=== PATIENT | female | born 1950 | race Two or more races ===

== ENCOUNTER 2019-11-09 23:45 | Inpatient (IN) | payer MEDICAID ==
[~2019-11-09] VITALS: Ht 162.6 cm; Wt 71.2 kg
[~2019-11-09 23:45] MED LIST: ACET650T10 PO; AMIN30LI2 PO; AMLO10TA4 PO; ASPI-1169 PO; ATOR10TA PO; BENA20TA9 PO; CALC-1074 PO; CEFT1VIA15 IV; CLON0.1T PO; DOCU-141 PO; ERGO500040 PO; ESOM40CA PO; FERR325T23 PO; FOLI0.8T2 PO; FOLI1TAB16 PO; FURO-144 PO; GABA300C PO; INSU100V30 IJ; INSU100V7 SQ; ISOS10TA2 PO; MAGN400O6 PO; NUT.237L67 PO; POLY17PO4 PO; RISP1TAB7 PO; SERT100T PO; THIA100T13 PO
--- NOTE | 2019-11-09 23:45 | NUR ---
TO ER BED 5 BIB EMS C/O FEVER AND LOW 02 SAT 85% RA PER EMS REPORT. O2 SAT 96%4L/NC RLE REDNESS, SWELLING NOTED. PT AAOX2, CONFUSED. SKIN HOT TO TOUCH. LUNG SOUNDS CLEAR BILATERALLY ON AUSCULTATION. PLACE PT ON CARDIAC MONITORING, CONTINUOUS POX, O2 @4L/NC O2 SAT 96%. ER MD AT BEDSIDE TO EVAL PT WITH ORDERS RECEIVED. WILL CARRY OUT ORDERS.
[2019-11-10] VITALS (7 sets, daily range): BP systolic 139–150; BP diastolic 63–73
[2019-11-10] MEDS ORDERED: ACETAMINOPHEN 650 MG/SUPP.RECT RC ONE ×2 (00:08)
[2019-11-10 00:25] LABS: BASOPHILS % (AUTO) 0.2 % (0.0-2.0); EOSINOPHILS % (AUTO) 0.1 % (0.0-6.0); HEMATOCRIT 29 % (33-45); HEMOGLOBIN 9.4 g/dL (11.5-14.8); LYMPHOCYTES # (AUTO) 0.3 /CMM (0.8-4.8); LYMPHOCYTES % (AUTO) 4.2 % (20.0-44.0); MEAN CORPUSCULAR HGB CONC 33 g/dl (31.0-36.0); MEAN CORPUSCULAR VOLUME 97 fL (82-100); MONOCYTES # (AUTO) 0.3 /CMM (0.1-1.30); MONOCYTES % (AUTO) 4.9 % (2.0-12.0); NEUTROPHILS % (AUTO) 90.6 % (43.0-81.0); PLATELET COUNT (AUTO) 190 /CMM (150-450); RED BLOOD CELL COUNT(AUTO) 2.98 MIL/uL (4.0-5.2); WHITE BLOOD COUNT (AUTO) 6.6 K/uL (4.3-11.0)
--- NOTE | 2019-11-10 00:29 | NUR ---
Covid swab collected, blood draw compelted, and urine collected via straight cath per dr. messer sent to lab.
[2019-11-10 00:33] LABS: APPEARANCE,URINE Cloudy (CLEAR); BILIRUBIN,URINE Negative (NEGATIVE); BLOOD, URINE Moderate Ery/uL (NEGATIVE); COLOR,URINE Yellow (YELLOW); KETONES,URINE Negative (NEGATIVE); LEUKOCYTE ESTERASE ,URINE Small (NEGATIVE); NITRITE, URINE Negative (NEGATIVE); PH,URINE 8.5 (5.0-8.0); PROTEIN,URINE >=300 mg/dl (NEGATIVE); UGLUCOSE Negative (NEGATIVE); UROBILINOGEN,URINE 0.2 EU/dL (0.2)
[2019-11-10 00:36] LABS: CREATININE 2.5 mg/dL (0.6-1.3); POTASSIUM 3.9 mmol/L (3.5-5.1)
[2019-11-10 00:44] LABS: ALBUMIN 2.7 g/dL (3.4-5.0); BILIRUBIN,DIRECT 0.3 mg/dL (0.0-0.2); BILIRUBIN,TOTAL 0.6 mg/dL (0.2-1.0); TOTAL PROTEIN, SERUM 6.7 g/dL (6.4-8.2)
[2019-11-10 00:50] LABS: BACTERIA,URINE Many /HPF (None Seen); RBC,URINE 21-50 /HPF (0-2); SQUAMOUS EPITHELIAL CELL,UR Many /HPF (None Seen)
--- NOTE | 2019-11-10 00:50 | NUR ---
radiology at bedside for cxr
[2019-11-10] MEDS ORDERED: VANCOMYCIN 1 GM VIAL ONE (00:59)
[2019-11-10] MEDS ORDERED: VANCOMYCIN 1 GM in IV D5W 250 ML IV ONE (01:00)
[2019-11-10] MEDS ORDERED: IV NS 0.9% 500 ML BAG IV ONE (01:00)
--- NOTE | 2019-11-10 01:04 | NUR ---
ann at bedside.
[2019-11-10] MEDS ORDERED: LEVOFLOXACIN 750 MG /D5W 150ML PIGGYBACK IV ONE (01:30)
--- NOTE | 2019-11-10 01:45 | NUR ---
pt cleaned, diaper changed, rectal temp 99.7, dr. messer aware
--- NOTE | 2019-11-10 01:53 | NUR ---
Report given to LEONA Pedersen for continuity of care.
--- NOTE | 2019-11-10 01:55 | NUR ---
RECEIVED REPORT FROM BRIANNA FROM ER FOR NIELS
[2019-11-10] MEDS ORDERED: ONDANSETRON HCL/PF 4 MG/2 ML VIAL IVP PRN (02:00)
[2019-11-10] MEDS ORDERED: DEXTROSE 50%-WATER 50 ML DISP.SYRIN IV PRN (02:00)
[2019-11-10] MEDS ORDERED: ACETAMINOPHEN 650 MG/SUPP.RECT RC PRN (02:00)
[2019-11-10] MEDS ORDERED: ALBUTEROL SULFATE 8 GM HFA.AER.AD IH PRN (02:00)
[2019-11-10] MEDS ORDERED: LEVOFLOXACIN 750 MG /D5W 150ML 150 ML IV ONE (02:11)
[2019-11-10] MEDS ORDERED: AZTREONAM 1 G VIAL ONE (02:11)
--- NOTE | 2019-11-10 02:22 | NUR ---
pt transfered to room 106 via gurney per acls protocol. endorsed remaining iv ATB for admitting RN
--- NOTE | 2019-11-10 02:25 | NUR ---
RN ADMITTING NOTES: RECEIVED PATIENT FROM ER VIA [facility]; ADMITTING DIAGNOSIS OF PNEUMONIA R/O COVID19; RESULTS PENDING. PATIENT AWAKE, ALERT AND ORIENTED X2. TRINIDADIAN SPEAKING BUT ABLE TO UNDERSTAND LITTLE SWEDISH. DENIES PAIN. IN NO S/SX OF ACUTE DISTRESS AT THIS TIME. NO SOB NOTED. PATIENT'S BREATHING IS EVEN AND UNLABORED. PATIENT IS ON 4 L OF OXYGEN VIA NC; TOLERATING WELL.SATURATING 98% AT THE MOMENT. PATIENT ON TELE MONITORING READING SINUS TACHY WITH HR 100s. NOTED IV SITE ON L FA; GAUGE18,FLUSHING AND PATENT , SALINE LOCKED. NO S/S OF INFECTION OR INFILTRATION. NOTED AV FISTULA ON THE R UA. SITE CLEAN , DRY, INTACT. BRUIT AND THRILL NOTED.PATIENT ON DIAPERS. NOTED R LOWER LEG SWELLING/EDEMA AND REDNESS. PICTURE TAKEN AND PLACED IN CHART. WOUND CONSULT REQUESTED. PATIENT KEPT CLEAN , DRY AND COMFORTABLE.SAFETY MEASURES HAVE BEEN PROVIDED AND IMPLEMENTED. PATIENT BED ALARM IS ON. HEAD OF BED ELEVATED. BED IS LOCKED, IN LOWEST POSITION AND SIDE RAILS UP. CALL LIGHT WITHIN REACH OF THE PATIENT. ISOLATION PRECAUTIONS IN PLACE. WILL CONTINUE TO MONITOR AND REASSESS FOR ANY CHANGES. WILL ATTEND TO ALL MD ADMITTING ORDERS. RECEIVED IV ABX FROM ER-RN WILL ADMINISTER PER MD ORDER.
[2019-11-10 02:46] LABS: C-REACTIVE PROTEIN 20.7 mg/dL (0.0-0.9)
[2019-11-10] MEDS: AZTREONAM 1 G in IV NS 0.9% 100 ML IV ONE ×2 (04:20→04:21)
--- NOTE | 2019-11-10 06:46 | NUR ---
PRODUCT MARKETING EXECUTIVE - CLOSING NOTES PATIENT IN BED RESTING COMFORTABLY. PATIENT IN NO ACUTE DISTRESS. NO SOB NOTED, PT BREATHING IS EVEN AND UNLABORED. PT BREATHING ON OXYGEN 4 L VIA NC. PATIENT ON CARDIAC MONITORING READING SINUS RHYTHM HR 90s. PATIENT STATES NO PAIN AT THIS TIME. PATIENT IS CLEAN , DRY AND COMFORTABLE THROUGHOUT THE SHIFT. ALL MD ADMITTING ORDERS ATTENDED. NEEDS AND CONCERNS ADDRESSED. SAFETY MEASURES IN PLACED. PATIENT BED IS LOCKED AND IN LOWEST POSITION. SIDE RAILS UP. CALL LIGHT WITHIN REACH OF THE PATIENT. ISOLATION PRECAUTION MAINTAINED . WILL ENDORSE TO AM SHIFT FOR NIELS.
--- NOTE | 2019-11-10 07:15 | NUR ---
RN NOTES RECEIVED PT ON BED, A/Ox1, CITIZEN OF [place] SPEAKING, ON 4L O2 N/C , NO SOB NOTED, ON TELE SR HR IN 80'S , PATIENT RESTING COMFORTABLY. PATIENT IN NO ACUTE DISTRESS. L FA IV SITE G 20 SITE CLEAN, DRY AND INTACT. NEEDS AND CONCERNS ADDRESSED. SAFETY MEASURES IN PLACED. PATIENT BED IS LOCKED AND IN LOWEST POSITION. SIDE RAILS UP x3. CALL LIGHT WITHIN EASY REACH OF THE PATIENT. ISOLATION PRECAUTION MAINTAINED . WILL CONTINUE TO MONITOR .
[2019-11-10] MEDS ORDERED: FEE PK DOSING 1 MIN EA MC ONE (07:56)
[2019-11-10] MEDS ORDERED: VANCOMYCIN 500 MG in IV D5W 100 ML IV PRN (08:30)
[2019-11-10] MEDS ORDERED: CHLO473M3 MM (08:50)
[2019-11-10] MEDS: BLOOD SUGAR DIAGNOSTIC 1 EACH STRIP IN SCH ×4 (09:40→21:26)
--- NOTE | 2019-11-10 09:59 | NUR ---
covid result still pending.
--- NOTE | 2019-11-10 13:00 | NUR ---
RN NOTES DR KYLE NOTIFIED REGARDING MED RECON .
--- NOTE | 2019-11-10 13:40 | NUR ---
RN NOTES CALL RECEIVED FROM MICROBIOLOGY , PT IS HAS GRAM NEGATIVE RODS IN BLOOD CULTURE, DR SAROJ CAMPBELL .
[2019-11-10] MEDS: INSULIN REGULAR, HUMAN 100 UNIT/ML 3 ML VIAL SQ PRN ×2 (17:24→21:28)
--- NOTE | 2019-11-10 17:37 | NUR ---
COVID RESULT FF. UP STILL PENDING.
--- NOTE | 2019-11-10 18:00 | NUR ---
RN NOTES PT REMANS STABLE , NO SIGNIFICANT CHANGES NOTED ON THIS SHIFT, WILL ENDORSE TO RENTAL CLERK TOOL AND EQUIPMENT NURSE FOR CONTINUITY OF CARE
--- NOTE | 2019-11-10 19:30 | NUR ---
VETERINARY ASSISTANT TECHNICIAN NOTES PT ON BED AWAKE A/O X2 VERBAL TALKING NON SENSE, NO SIGN AND SYMPTOMS OF RESPIRATORY DISTRESS, SPO2 97% ON 4L O2 VIA NC TOLERATING WELL. ON TELE MONITOR CURRENT READING SINUS RHYTHMS 80'S, DROPLET ISOLATION MAINTAINED FOR R/O COVID 19 PENDING RESULTS,SAFETY MEASURE MAINTAINED ON LOWEST POSITION AND LOCKED WITH LFA G#20 PATENT AND FLUSHED, WITH R ARM AV FISTULA, WILL CONT TO MONITOR
[2019-11-11] VITALS (8 sets, daily range): BP systolic 112–146; BP diastolic 55–67
--- NOTE | 2019-11-11 06:54 | NUR ---
RN CLOSING NOTES PT SLEEPING ON BED NO SIGN AND SYMPTOMS OF RESPIRATORY DISTRESS SPO2 >95% NO SIGNIFICANT CHANGES ON CONDITION NOTED, CELLULITIS ON BLE STILL NOTED DROPLET ISOLATION MAINTAINED FOR R/O COVID PENDING RESULT , ON TELE MONITOR WITH CURRENT READING SINUS RHYTHM 80'S, ALL NEEDS ATTENDED SAFETY MEASURE MAINTAINED WILL ENDORSED TO AM SHIFT RN
[2019-11-11 07:45] LABS: BASOPHILS % (AUTO) 0.2 % (0.0-2.0); EOSINOPHILS % (AUTO) 0.8 % (0.0-6.0); HEMATOCRIT 31 % (33-45); HEMOGLOBIN 10.1 g/dL (11.5-14.8); LYMPHOCYTES # (AUTO) 0.5 /CMM (0.8-4.8); LYMPHOCYTES % (AUTO) 6.1 % (20.0-44.0); MEAN CORPUSCULAR HGB CONC 33 g/dl (31.0-36.0); MEAN CORPUSCULAR VOLUME 96 fL (82-100); MONOCYTES # (AUTO) 0.6 /CMM (0.1-1.30); MONOCYTES % (AUTO) 8.1 % (2.0-12.0); NEUTROPHILS # (AUTO) 6.2 /CMM (1.8-8.9); NEUTROPHILS % (AUTO) 84.8 % (43.0-81.0); PLATELET COUNT (AUTO) 187 /CMM (150-450); RED BLOOD CELL COUNT(AUTO) 3.25 MIL/uL (4.0-5.2); WHITE BLOOD COUNT (AUTO) 7.4 K/uL (4.3-11.0)
--- NOTE | 2019-11-11 07:50 | NUR ---
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 RESPIRATION WITH NO PRESENCE OF ACUTE RESPIRATORY DISTRESS, ON O2 AT 3LPM VIA N/C KACEY WELL, HOB ELEVATED. ABD SOFT AND NON DISTENDED WITH ACTIVE BOWEL SOUNDS, SKIN WARM TO TOUCH AND DRY. NO S/SX OF PAIN AND DISCOMFORT. IV SITE AT LEFT FA PATIENT IN FLUSHING WITH LEAKING, NO S/SX OF INFILTRATION. AV FISTULA AT RIGHT UPPER ARM WITH + BRUIT AND THRILL, HD MWF. TELE MONITOR SHOES SINUS RHYTHM 81. ON CONTACT/DROPLET ISOLATION MARTIR TO R/O COVID, PENDING RESULT, PPE UTILIZED. BED IN LOW LOCKED POSITION, SR X2 FOR SAFETY. WILL CONTINUE TO MONITOR CARE.
[2019-11-11] MEDS: BLOOD SUGAR DIAGNOSTIC 1 EACH STRIP IN SCH ×3 (07:58→17:52)
[2019-11-11 08:07] LABS: ALBUMIN 2.4 g/dL (3.4-5.0); BILIRUBIN,TOTAL 0.5 mg/dL (0.2-1.0); CALCIUM, SERUM 9.2 mg/dL (8.5-10.1); CREATININE 3.6 mg/dL (0.6-1.3); POTASSIUM 5.5 mmol/L (3.5-5.1); TOTAL PROTEIN, SERUM 6.3 g/dL (6.4-8.2)
[2019-11-11] MEDS: HEPARIN SODIUM, PORCINE 5000 UNITS/1 ML VIAL SQ SCH ×2 (11:07→21:35)
--- NOTE | 2019-11-11 11:13 | NUR ---
ASSISTANT BRANCH MANAGER NOTES BLOOD SUGAR 51, PT GIVEN CRANBERRY JUICE 2 PACKS. WILL MONITOR AFTER 30 MINUTES
--- NOTE | 2019-11-11 11:21 | NUR ---
POSTING SPECIALIST NOTES PAGED DR. KYLE FOR MEDICATION RECONCILIATION. RESPONDED TO BE DONE BY
[2019-11-11] MEDS: ACETAMINOPHEN 325 MG TABLET PO PRN (11:28)
--- NOTE | 2019-11-11 11:28 | NUR ---
CIVIL ENGINEERING SPECIALIST NOTES PT C/O COATES, WITH FACIAL GRIMACE AND MOANING. ADMINISTERED TYLENOL PO ORDERED.
--- NOTE | 2019-11-11 11:44 | NUR ---
followup covid result still pending.
--- NOTE | 2019-11-11 11:48 | NUR ---
FIELD CARE MANAGER NOTES RE-CHECK BS WITH, BED BATH PROVIDED. IV SITE ON LEFT FA LEAKING. CHANGED IV SITE TO LEFT FOREARM #24. PATENT IN FLUSHING, BACKFLOW NOTED.
--- NOTE | 2019-11-11 11:57 | NUR ---
INSURANCE CLAIMS SPECIALIST NOTES OBTAINED TELEPHONE CONSENT WITH YOLIE LANCASTER AT 1156, WITNESSED BY MARIBEL DELGADILLO FOR HEMODIALYSIS PROCEDURE WHILE IN THE HOSPITAL.
[2019-11-11] MEDS ORDERED: VANCOMYCIN 1 GM in IV D5W 250 ML IV ONE (18:00)
--- NOTE | 2019-11-11 18:01 | NUR ---
follow up covid result still pending.
--- NOTE | 2019-11-11 18:49 | NUR ---
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 PT WITH NO PRESENCE OF ACUTE RESPIRATORY DISTRESS, ON O2 AT 3LPM VIA N/C KACEY WELL, HOB ELEVATED. ABD SOFT AND NON DISTENDED WITH ACTIVE BOWEL SOUNDS, SKIN WARM TO TOUCH AND DRY. NO S/SX OF PAIN AND DISCOMFORT. IV SITE AT LEFT FA PATIENT IN FLUSHING, NO S/SX OF INFILTRATION, VANCOMYCIN RUNNING ORDERED. AV FISTULA AT RIGHT UPPER ARM WITH + BRUIT AND THRILL, HD TODAY WITH 1000 OUTPUT. TELE MONITOR SHOES SINUS TACHYCARDIA 100. ON CONTACT/DROPLET ISOLATION DUE TO R/O COVID, PPE UTILIZED. BED IN LOW LOCKED POSITION, SR X2 FOR SAFETY. ENDORSED CARE TO NEXT SHIFT.
[2019-11-11] MEDS ORDERED: LEVOFLOXACIN 750 MG /D5W 150ML PIGGYBACK IV SCH (21:00)
[2019-11-11] MEDS: CEFEPIME 1 GM in IV D5W 50 ML IV SCH (21:36)
[2019-11-12 04:19] VITALS: BP 172/68
[2019-11-12] MEDS: BLOOD SUGAR DIAGNOSTIC 1 EACH STRIP IN SCH ×5 (05:37→21:07)
[2019-11-12] MEDS: INSULIN REGULAR, HUMAN 100 UNIT/ML 3 ML VIAL SQ PRN ×2 (05:38→21:09)
--- NOTE | 2019-11-12 07:10 | NUR ---
INFORMATION TECHNOLOGY PROJECT MANAGER NOTES RECEIVED PT ON BED, A/Ox1, PT A /OX1, CONFUSED, PT HALLUCINATING AT TIMES , COOPERATIVE WITH CARE. ON TELE SR, ON 3 L O2 N/C , PT WITH NO PRESENCE OF ACUTE RESPIRATORY DISTRESS,HOB ELEVATED. ABD SOFT AND NON DISTENDED WITH ACTIVE BOWEL SOUNDS, SKIN WARM TO TOUCH AND DRY. NO S/SX OF PAIN AND DISCOMFORT. L FA IV SITE G 20 CLEAN, DRY AND INTACT, AV FISTULA AT RIGHT UPPER ARM WITH + BRUIT AND THRILL, ON CONTACT/DROPLET ISOLATION DUE TO R/O COVID, BED IN LOW LOCKED AND LOWEST POSITION, SR X3 FOR SAFETY.CALL LIGHT WITHIN EASY REACH, WILL CONTINUE TO MONITOR .
[2019-11-12 08:00] VITALS: BP 144/65
[2019-11-12] MEDS ORDERED: VANCOMYCIN 500 MG in IV D5W 100 ML IV PRN (08:30)
[2019-11-12] MEDS: HEPARIN SODIUM, PORCINE 5000 UNITS/1 ML VIAL SQ SCH ×2 (08:32→20:57)
--- NOTE | 2019-11-12 09:17 | NUR ---
WOUND CARE CONSULT: REVIEWED CHART, NURSING DOCUMENTATION AND PHOTOS. PER NURSING STAFF, SOME REDNESS NOTED TO RT LOWER LEG PRESENT ON ADMISSION. CURRENT ESTEFANÍA SCORE IS 14. RECOMMENDATIONS MADE FOR SKIN PROTECTION. DISCUSSED WITH NURSING STAFF. WILL SEE PRN. YANES IN AGREEMENT WITH PLAN OF CARE.
[2019-11-12] MEDS ORDERED: Z GUARD REMEDY 2 OZ OINT TP PRN (09:30)
[2019-11-12 12:00] VITALS: BP_SYST 117; BP_SYST 128; BP_DIAS 53; BP_DIAS 67
--- NOTE | 2019-11-12 12:00 | NUR ---
RN NOTES PT IS COVID NEGATIVE , DR KYLE NOTIFIED
--- NOTE | 2019-11-12 13:00 | NUR ---
RN NOTES ORDER RECEIVED TO TRANSFERE PT TO [address] FLOOR .
--- NOTE | 2019-11-12 15:23 | NUR ---
RN NOTES PT TRANSFERRED TO ROOM 325 IN STABLE CONDITION, REPORT GIVEN TO HAROLDO DELGADILLO FOR CONTINUITY OF CARE .
--- NOTE | 2019-11-12 15:30 | NUR ---
TELE/RN NOTES RECEIVED REPORT FROM SARAHI RN A 68 Y/O FEMALE PATIENT WITH DIAGNOSES OF PNEUMONIA, POSSIBLE COVID POA CELLULITIS RIGHT LEG, ALLERGY TO PENICILLIN FULL CODE STATUS. IV ACCESS AT LFA # 20 G AND AV FISTULA RIGHT UPPER ARM. ON OXYGEN AT 2 L VIA NASAL CANNULA. NO SOB NOTED.WILL CONTINUE TO MONITOR.
[2019-11-12 17:02] VITALS: BP 141/75
--- NOTE | 2019-11-12 17:14 | NUR ---
INITIAL ECHOCARDIOGRAM SHOWED EF 35-40%~, W/ SEVERE PUL. HTN OF 58mmHg, LARGE PLEURAL EFFUSION AND MODERATE PERICARDIAL EFFUSION. RESULTS CONVEYED TO LEONA.
--- NOTE | 2019-11-12 17:55 | NUR ---
INSIDE TESTER NOTES BS 128MG/DL 0 COVERAGE
[2019-11-12] MEDS: ATORVASTATIN 10 MG TABLET PO SCH (17:57)
--- NOTE | 2019-11-12 19:10 | NUR ---
OUTREACH LIBRARIAN OPENING NOTES RECEIVED PATIENT IN BED ALERT AND ORIENTED X2 WITH EPISODES OF CONFUSION, RESPIRATIONS EVEN AND UNLABORED WITH EQUAL RISE AND FALL OF CHEST, ON TOOL GRINDER OPERATOR SURFACE ST 104, NO S/S OF PAIN OR DISCOMFORT AT THIS TIME, HOB ELEVATED FOR ASPIRATION PRECAUTIONS, LEFT FA IV SITE INTACT AND PATENT, NO INFILTRATION NOTED. ORIENTED TO STAFF AND CALL LIGHT AND KEPT WITHIN REACH, FALL PRECAUTIONS RENDERED, BED ALARM IN PLACE. ALL NEEDS ATTENDED AT THIS TIME, WILL CONTINUE TO MONITOR.
--- NOTE | 2019-11-12 19:18 | NUR ---
TELE/RN CLOSING NOTES PATIENT IS ON BED. ALERT AND ORIENTED X2 AND CONFUSED. PATIENT IN NO APPARENT RESPIRATORY DISTRESS NOTED. DENIES PAIN AT THIS TIME. IV ACCESS AT LEFT FOREARM # 20 G AND AV FISTULA AT RIGHT UPPER ARM PATENT AND INTACT. ALL DUE MEDS WAS GIVEN. CHECKED PATIENT EVERY 2 HOURS. BED IN LOWEST POSITION. SIDE RAILS UP X2. CALL LIGHT WITHIN REACH. WILL ENDORSED TO AIRPORT OPERATIONS COORDINATOR FOR NIELS.
[2019-11-12] MEDS ORDERED: ALBUTEROL FS 2.5 MG/0.5 ML VIAL.NEB NEB PRN (19:30)
[2019-11-12 20:00] VITALS: BP 147/67
[2019-11-12 20:21] VITALS: BP 147/67
[2019-11-12] MEDS: CEFEPIME 1 GM in IV D5W 50 ML IV SCH (20:51)
[2019-11-12] MEDS: CLONIDINE HCL 0.1 MG TABLET PO SCH (20:56)
[2019-11-12] MEDS: GABAPENTIN 300 MG CAPSULE PO SCH (21:07)
[2019-11-12 21:38] LABS: BASOPHILS % (AUTO) 0.2 % (0.0-2.0); EOSINOPHILS % (AUTO) 0.9 % (0.0-6.0); HEMATOCRIT 30 % (33-45); HEMOGLOBIN 9.8 g/dL (11.5-14.8); LYMPHOCYTES # (AUTO) 0.3 /CMM (0.8-4.8); LYMPHOCYTES % (AUTO) 5.2 % (20.0-44.0); MEAN CORPUSCULAR HGB CONC 32 g/dl (31.0-36.0); MEAN CORPUSCULAR VOLUME 95 fL (82-100); MONOCYTES # (AUTO) 0.5 /CMM (0.1-1.30); MONOCYTES % (AUTO) 8.2 % (2.0-12.0); NEUTROPHILS # (AUTO) 5.6 /CMM (1.8-8.9); NEUTROPHILS % (AUTO) 85.5 % (43.0-81.0); PLATELET COUNT (AUTO) 171 /CMM (150-450); RED BLOOD CELL COUNT(AUTO) 3.18 MIL/uL (4.0-5.2); WHITE BLOOD COUNT (AUTO) 6.6 K/uL (4.3-11.0)
[2019-11-12 21:43] LABS: CALCIUM, SERUM 8.4 mg/dL (8.5-10.1); CREATININE 3.7 mg/dL (0.6-1.3); MAGNESIUM 1.8 mg/dL (1.8-2.4); PHOSPHORUS 3.2 mg/dL (2.5-4.9); POTASSIUM 3.9 mmol/L (3.5-5.1)
--- NOTE | 2019-11-12 22:52 | NUR ---
RN MS NOTES SPOKE TO REGARDING LAB RESULTS AND SODIUM AT 129 PT IS HD PT. NO NEW ORDERS AT THIS TIME, WILL CONTINUE TO MONITOR.
[2019-11-13] VITALS (8 sets, daily range): BP systolic 90–140; BP diastolic 51–74
--- NOTE | 2019-11-13 06:07 | NUR ---
paper pattern inspector note per lab unable to draw blood sample for lab will come back.
[2019-11-13] MEDS: INSULIN REGULAR, HUMAN 100 UNIT/ML 3 ML VIAL SQ PRN ×2 (06:08→22:23)
[2019-11-13] MEDS: BLOOD SUGAR DIAGNOSTIC 1 EACH STRIP IN SCH ×4 (06:08→22:21)
--- NOTE | 2019-11-13 06:27 | NUR ---
EXTERMINATOR HELPER TERMITE CLOSING NOTES PATIENT IN BED AWAKE ALERT AND ORIENTED X1-2 WITH EPISODES OF CONFUSION, RESPIRATIONS EVEN AND UNLABORED WITH EQUAL RISE AND FALL OF CHEST, ON HOP WEIGHER ST 101, NO S/S OF PAIN OR DISCOMFORT AT THIS TIME, HOB ELEVATED FOR ASPIRATION PRECAUTIONS, LEFT FA IV SITE INTACT AND PATENT, NO INFILTRATION NOTED. SANTI AV FISTULA BRUIT PRESENT . AM ACCUCHECK 96 NO INSULIN PER SLIDING SCALE. PT NOTED ANURIC,HD PT, BLADDER SCAN DONE NOT RETAINING NOTED ONLY 20-60CC'S, NO ABDOMEN DISTENTION, NO PAIN TO ABDOMEN AREA. CALL LIGHT AND KEPT WITHIN REACH, FALL PRECAUTIONS RENDERED, BED ALARM IN PLACE. ALL NEEDS ATTENDED AT THIS TIME, WILL CONTINUE TO MONITOR AND ENDORSE TO NEXT SHIFT.
--- NOTE | 2019-11-13 07:30 | NUR ---
REMOTE ENCODING OPERATIONS SUPERVISOR NOTES PT IN BED, AWAKE, ALERT AND VERBALLY RESPONSIVE, DENIES PAIN, NOT IN DISTRESS, ASSISTED WITH BREAKFAST, CALL LIGHT WITHIN REACH, KEPT COMFORTABLE IN BED.
[2019-11-13 08:36] LABS: BASOPHILS % (AUTO) 0.4 % (0.0-2.0); EOSINOPHILS % (AUTO) 1.6 % (0.0-6.0); HEMATOCRIT 29 % (33-45); HEMOGLOBIN 9.8 g/dL (11.5-14.8); LYMPHOCYTES # (AUTO) 0.4 /CMM (0.8-4.8); LYMPHOCYTES % (AUTO) 6.4 % (20.0-44.0); MEAN CORPUSCULAR HGB CONC 33 g/dl (31.0-36.0); MEAN CORPUSCULAR VOLUME 94 fL (82-100); MONOCYTES # (AUTO) 0.6 /CMM (0.1-1.30); MONOCYTES % (AUTO) 8.5 % (2.0-12.0); NEUTROPHILS # (AUTO) 5.7 /CMM (1.8-8.9); NEUTROPHILS % (AUTO) 83.1 % (43.0-81.0); PLATELET COUNT (AUTO) 188 /CMM (150-450); RED BLOOD CELL COUNT(AUTO) 3.12 MIL/uL (4.0-5.2); WHITE BLOOD COUNT (AUTO) 6.8 K/uL (4.3-11.0)
[2019-11-13 08:38] LABS: CALCIUM, SERUM 8.4 mg/dL (8.5-10.1); CREATININE 3.9 mg/dL (0.6-1.3); MAGNESIUM 1.9 mg/dL (1.8-2.4); PHOSPHORUS 3.4 mg/dL (2.5-4.9); POTASSIUM 4.2 mmol/L (3.5-5.1)
[2019-11-13] MEDS: CLONIDINE HCL 0.1 MG TABLET PO SCH ×2 (09:19→21:00)
[2019-11-13] MEDS: FOLIC ACID 1 MG TABLET PO SCH (09:19)
[2019-11-13] MEDS: DOCUSATE SODIUM 100 MG CAPSULE PO SCH (09:19)
[2019-11-13] MEDS: CARVEDILOL 3.125 MG TABLET PO SCH ×2 (09:20→21:00)
[2019-11-13] MEDS: HEPARIN SODIUM, PORCINE 5000 UNITS/1 ML VIAL SQ SCH ×2 (09:22→21:32)
[2019-11-13] MEDS: ATORVASTATIN 10 MG TABLET PO SCH (17:42)
--- NOTE | 2019-11-13 18:37 | NUR ---
CONTINUOUS PROCESS MACHINE OPERATOR NOTES: PATIENT IN BED SLEEPING COMFORTABLY. PATIENT SHOWS NO SIGNS OF DISTRESS. AROUSABLE. PATIENT DOES NOT COMPLAIN OF PAIN. ASSISTED WITH DINNER. PM CARE PROVIDED.
--- NOTE | 2019-11-13 19:55 | NUR ---
ROOF CEMENT AND PAINT MAKER HELPER NOTES PT IN BED, AWAKE, ALERT AND VERBALLY RESPONSIVE, DENIES PAIN, NOT IN DISTRESS, TELE MONITOR READS SINUS 90s, NO SIGNS OF ACUTE CARDIAC OR RESPIRATORY DISTRESS. SAFETY MEASURES IN PLACE, ASPIRATION PRECAUTION EMPHASIZED. ALL NEEDS ANTICIPATED. WILL CONTINUE TO MONITOR ACCORDINGLY.
[2019-11-13] MEDS: CEFTRIAXONE 1 G in IV D5W 50 ML IV SCH (20:21)
[2019-11-13] MEDS: ACETAMINOPHEN 325 MG TABLET PO PRN (21:31)
[2019-11-13] MEDS: GABAPENTIN 300 MG CAPSULE PO SCH (21:39)
[2019-11-14] VITALS: BP 130/65
[2019-11-14 04:00] VITALS: BP 152/71
--- NOTE | 2019-11-14 06:05 | NUR ---
RN NOTES ALL NEEDS ATTENDED AND MET, ABLE TO REST AND SLEPT AT INTERVALS, REPOSITIONED FOR COMFORT, SAFETY MEASURES IN PLACE, ASPIRATION PRECAUTION EMPHASIZE, CALL LIGHT WITHIN EASY REACH. WILL ENDORSE TO AM NURSE FOR CONTINUITY OF CARE.
[2019-11-14] MEDS: BLOOD SUGAR DIAGNOSTIC 1 EACH STRIP IN SCH ×4 (07:07→21:26)
--- NOTE | 2019-11-14 07:30 | NUR ---
HEEL GOUGER NOTES PT IN BED, AWAKE, ALERT AND ABLE TO ANSWER SIMPLE QUESTIONS, WITH EPISODES OF CONFUSION, NOT IN DISTRESS, CALL LIGHT WITHIN REACH.
[2019-11-14 08:00] VITALS: BP 161/70
[2019-11-14 08:06] LABS: CALCIUM, SERUM 8.6 mg/dL (8.5-10.1); CREATININE 4.5 mg/dL (0.6-1.3); PHOSPHORUS 4.4 mg/dL (2.5-4.9); POTASSIUM 4.4 mmol/L (3.5-5.1)
[2019-11-14 08:15] LABS: BASOPHILS # (AUTO) 0.1 /CMM (0.0-0.2); BASOPHILS % (AUTO) 0.6 % (0.0-2.0); EOSINOPHILS % (AUTO) 0.9 % (0.0-6.0); HEMATOCRIT 28 % (33-45); HEMOGLOBIN 9.2 g/dL (11.5-14.8); LYMPHOCYTES # (AUTO) 0.7 /CMM (0.8-4.8); LYMPHOCYTES % (AUTO) 6.7 % (20.0-44.0); MEAN CORPUSCULAR HGB CONC 33 g/dl (31.0-36.0); MEAN CORPUSCULAR VOLUME 94 fL (82-100); MONOCYTES # (AUTO) 0.7 /CMM (0.1-1.30); NEUTROPHILS # (AUTO) 8.6 /CMM (1.8-8.9); NEUTROPHILS % (AUTO) 84.8 % (43.0-81.0); PLATELET COUNT (AUTO) 188 /CMM (150-450); RED BLOOD CELL COUNT(AUTO) 2.99 MIL/uL (4.0-5.2); WHITE BLOOD COUNT (AUTO) 10.1 K/uL (4.3-11.0)
[2019-11-14] MEDS: CLONIDINE HCL 0.1 MG TABLET PO SCH ×2 (09:58→21:09)
[2019-11-14] MEDS: DOCUSATE SODIUM 100 MG CAPSULE PO SCH (09:59)
[2019-11-14] MEDS: FOLIC ACID 1 MG TABLET PO SCH (09:59)
[2019-11-14] MEDS: CARVEDILOL 3.125 MG TABLET PO SCH ×2 (09:59→21:09)
[2019-11-14] MEDS: HEPARIN SODIUM, PORCINE 5000 UNITS/1 ML VIAL SQ SCH ×2 (10:00→21:10)
[2019-11-14] MEDS: INSULIN REGULAR, HUMAN 100 UNIT/ML 3 ML VIAL SQ PRN ×2 (12:14→21:27)
--- NOTE | 2019-11-14 13:29 | NUR ---
AUTOMOBILE BUMPER STRAIGHTENER NOTES PT IN BED, AWAKE, ALERT AND VERBALLY RESPONSIVE, WITH CONFUSION, NOT IN PAIN OR DISTRESS, ASSISTED WITH MEALS, CALL LIGHT WITHIN REACH, NEEDS ATTENDED.
[2019-11-14 16:00] VITALS: BP 163/84
[2019-11-14] MEDS: ATORVASTATIN 10 MG TABLET PO SCH (18:39)
--- NOTE | 2019-11-14 18:52 | NUR ---
BELT AND LINK ASSEMBLY SUPERVISOR NOTES PT IN BED, AWAKE, ALERT, CONFUSED, NO SIGN OF PAIN OR DISTRESS, HEMODIALYSIS ONGOING, TOLERATING WELL, PM CARE PROVIDED, ALL NEEDS ATTENDED.
--- NOTE | 2019-11-14 19:20 | NUR ---
MANAGER SOCIAL WORK OPENING NOTES RECEIVED PATIENT FROM MORNING SHIFT ALERT AND ORIENTED X 2. VERBALLY RESPONSIVE DIVEHI SPEAKING. BREATHING REGULAR AND UNLABORED ON OXYGEN AT 2L/MIN VIA NASAL CANNULA. LEFT FOREARM G20 IV LINE INTACT AND PATENT, FLUSHING WELL WITH NO BLEEDING OR S/S OF INFILTRATION NOTED. ON-GOING DIALYSIS VIA RIGHT UPPER ARM AV FISTULA. ON CARDIAC MONITORING WITH NSR AT 87bpm. NO S/S OF PAIN/DISCOMFORT NOTED AT THIS TIME. BED LOW AND LOCKED ON SEMI FOWLERS POSITION. CALL LIGHT IN REACH. WILL CONTINUE TO MONITOR.
--- NOTE | 2019-11-14 19:45 | NUR ---
TRANSIT BUS DRIVER NOTES S/P HEMODIALYSIS WITH 2L OUT. POST HD BP 158/70, NO ACTIVE BLEEDING NOTED ON SANTI AV FISTULA, POSITIVE FOR BRUIT AND THRILL. WILL CONTINUE TO MONITOR.
[2019-11-14] MEDS: CEFTRIAXONE 1 G in IV D5W 50 ML IV SCH (19:53)
[2019-11-14 20:00] VITALS: BP 151/65
[2019-11-14] MEDS: GABAPENTIN 300 MG CAPSULE PO SCH (21:08)
--- NOTE | 2019-11-14 22:00 | NUR ---
FOREIGN COLLECTION CLERK NOTES BS 110mg/dl, NO INSULIN COVERAGE NEEDED. WILL CONTINUE TO MONITOR.
[2019-11-15] VITALS: BP 145/65
[2019-11-15 00:01] VITALS: BP 145/65
[2019-11-15 04:00] VITALS: BP 146/70
--- NOTE | 2019-11-15 06:20 | NUR ---
DOUGH MIXER OPERATOR CLOSING NOTES PATIENT IN BED ALERT AND ORIENTED X 2. AFEBRILE WITH NO S/S OF DISTRESS OBSERVED. LEFT FOREARM G20 IV LINE PATENT AND FLUSHING WELL. MAINTAINED ON CARDIAC MONITORING WITH NSR AT 95bpm. NO S/S OF PAIN/DISCOMFORT NOTED THE WHOLE SHIFT. RIGHT UPPER ARM AV FISTULA POSITIVE FOR BRUIT AND THRILL, NO ACTIVE BLEEDING SEEN. BED LOW AND LOCKED ON SEMI FOWLERS POSITION. CALL LIGHT IN REACH. WILL ENDORSE TO MORNING SHIFT FOR NIELS.
[2019-11-15] MEDS: BLOOD SUGAR DIAGNOSTIC 1 EACH STRIP IN SCH ×4 (06:36→22:31)
[2019-11-15] MEDS: INSULIN REGULAR, HUMAN 100 UNIT/ML 3 ML VIAL SQ PRN ×4 (06:36→22:20)
[2019-11-15 06:52] LABS: BASOPHILS % (AUTO) 0.4 % (0.0-2.0); EOSINOPHILS % (AUTO) 0.7 % (0.0-6.0); HEMATOCRIT 28 % (33-45); HEMOGLOBIN 9.1 g/dL (11.5-14.8); LYMPHOCYTES # (AUTO) 0.5 /CMM (0.8-4.8); LYMPHOCYTES % (AUTO) 4.9 % (20.0-44.0); MEAN CORPUSCULAR HGB CONC 33 g/dl (31.0-36.0); MEAN CORPUSCULAR VOLUME 93 fL (82-100); MONOCYTES # (AUTO) 0.5 /CMM (0.1-1.30); MONOCYTES % (AUTO) 4.7 % (2.0-12.0); NEUTROPHILS # (AUTO) 9.1 /CMM (1.8-8.9); NEUTROPHILS % (AUTO) 89.3 % (43.0-81.0); PLATELET COUNT (AUTO) 215 /CMM (150-450); RED BLOOD CELL COUNT(AUTO) 3.01 MIL/uL (4.0-5.2); WHITE BLOOD COUNT (AUTO) 10.2 K/uL (4.3-11.0)
[2019-11-15 07:05] LABS: CALCIUM, SERUM 8.5 mg/dL (8.5-10.1); CREATININE 3.7 mg/dL (0.6-1.3); MAGNESIUM 2.1 mg/dL (1.8-2.4); PHOSPHORUS 4.2 mg/dL (2.5-4.9); POTASSIUM 4.2 mmol/L (3.5-5.1)
--- NOTE | 2019-11-15 07:50 | NUR ---
rn notes patient received on 2L nasal cannula, no sob noted, patient shows no s/s of pain at this time. Post HD from yesterday. L FA 20 SL, with SANTI AV fistula. bed at the lowest setting, call light within reach, side rails up x2.
[2019-11-15 08:00] VITALS: BP 137/63
[2019-11-15] MEDS: FOLIC ACID 1 MG TABLET PO SCH (08:37)
[2019-11-15] MEDS: DOCUSATE SODIUM 100 MG CAPSULE PO SCH (08:37)
[2019-11-15] MEDS: CARVEDILOL 3.125 MG TABLET PO SCH ×2 (08:37→22:24)
[2019-11-15] MEDS: CLONIDINE HCL 0.1 MG TABLET PO SCH ×2 (08:37→22:24)
[2019-11-15] MEDS: HEPARIN SODIUM, PORCINE 5000 UNITS/1 ML VIAL SQ SCH ×2 (08:38→22:23)
[2019-11-15] MEDS ORDERED: CEFA1FRO IV (12:48)
[2019-11-15] MEDS ORDERED: CARV3.122 PO (12:48)
[2019-11-15] MEDS: ATORVASTATIN 10 MG TABLET PO SCH (17:46)
--- NOTE | 2019-11-15 18:53 | NUR ---
rn closing notes patient remains on 2L nasal cannula, no sob noted, patient shows no s/s of pain at this time. TELE NSR this shift, anuric, R leg cellulitis resolved. L FA 20 with SANTI AV fistula present. 2Units insulin given around 1800 with 131 b/s. bed at the lowest setting, call light within reach, side rails up x2.
--- NOTE | 2019-11-15 19:15 | NUR ---
RN PM OPENING NOTE REPORT RECIEVED FROM JAYE RN. PT ON 2LNC NO SOB; RESP EVEN AND UNLABORED. PATIENT IN NO APPARENT DISTRESS. PT AXOX2 SPANSIH SPEAKING ONLY. PT TELE DC'D PATIENT WAS TO GET DISCHARGED TODAY BUT DISCHARGE WAS DELAYED PER REPORT. PT HAS LFA 22 GUAGE AND SANTI AVFISTULA POSITIVE BRUIT AND THRILL. BED DOWN LOCKED CALL LIGHT WITHIN REACH.
[2019-11-15 20:00] VITALS: BP 129/63
[2019-11-15] MEDS: CEFTRIAXONE 1 G in IV D5W 50 ML IV SCH (20:49)
[2019-11-15] MEDS: GABAPENTIN 300 MG CAPSULE PO SCH (22:23)
[2019-11-15] MEDS: ACETAMINOPHEN 325 MG TABLET PO PRN (22:24)
[2019-11-16 00:36] VITALS: BP 125/62
[2019-11-16 04:09] VITALS: BP 126/74
--- NOTE | 2019-11-16 06:57 | NUR ---
RN PM CLOSING NOTE PT ON 2LNC NO SOB; RESP EVEN AND UNLABORED. PATIENT IN NO APPARENT DISTRESS. PT AXOX2 SPANSIH SPEAKING ONLY. PT HAS LFA 22 GUAGE PATENT INTACT FLUSHED. AND SANTI AVFISTULA POSITIVE BRUIT AND THRILL. BED DOWN LOCKED CALL LIGHT WITHIN REACH. AM BS WAS 72 PATIENT GIVEN SNACKS OF JUICE AND PUDDING TOLEARTING SNACKS WELL.
--- NOTE | 2019-11-16 07:29 | NUR ---
rn notes patient received on 2L nasal cannula, no sob noted, patient acting confused at times. Sinhala speaking only. TELE dc since last night due to pending discharge that did not happen. ANURIC at this time with R leg cellulitis resolved. renal diet with L FA 22, SANTI AV fistula present. bed at the lowest setting, call light within reach, side rails up x2.
[2019-11-16] MEDS: BLOOD SUGAR DIAGNOSTIC 1 EACH STRIP IN SCH ×4 (07:33→21:06)
--- NOTE | 2019-11-16 07:33 | NUR ---
rn notes patient's blood glucose at 110, no insulin coverage needed.
[2019-11-16 08:37] LABS: BASOPHILS % (AUTO) 0.3 % (0.0-2.0); EOSINOPHILS % (AUTO) 1.7 % (0.0-6.0); HEMATOCRIT 30 % (33-45); HEMOGLOBIN 9.6 g/dL (11.5-14.8); LYMPHOCYTES # (AUTO) 0.6 /CMM (0.8-4.8); LYMPHOCYTES % (AUTO) 7.9 % (20.0-44.0); MEAN CORPUSCULAR HGB CONC 33 g/dl (31.0-36.0); MEAN CORPUSCULAR VOLUME 93 fL (82-100); MONOCYTES # (AUTO) 0.6 /CMM (0.1-1.30); NEUTROPHILS # (AUTO) 6.8 /CMM (1.8-8.9); NEUTROPHILS % (AUTO) 83.1 % (43.0-81.0); PLATELET COUNT (AUTO) 238 /CMM (150-450); RED BLOOD CELL COUNT(AUTO) 3.16 MIL/uL (4.0-5.2); WHITE BLOOD COUNT (AUTO) 8.2 K/uL (4.3-11.0)
[2019-11-16 08:56] LABS: CALCIUM, SERUM 8.3 mg/dL (8.5-10.1); CREATININE 4.4 mg/dL (0.6-1.3); POTASSIUM 4.4 mmol/L (3.5-5.1)
[2019-11-16] MEDS: DOCUSATE SODIUM 100 MG CAPSULE PO SCH (09:18)
[2019-11-16] MEDS: CLONIDINE HCL 0.1 MG TABLET PO SCH ×2 (09:18→20:53)
[2019-11-16] MEDS: CARVEDILOL 3.125 MG TABLET PO SCH ×2 (09:19→20:53)
[2019-11-16] MEDS: FOLIC ACID 1 MG TABLET PO SCH (09:19)
[2019-11-16] MEDS: HEPARIN SODIUM, PORCINE 5000 UNITS/1 ML VIAL SQ SCH ×2 (09:20→20:59)
[2019-11-16 10:24] LABS: BAND % (MANUAL) 3 % (0.0-5.0); EOSINOPHILS % (MANUAL) 1 % (0-4); LYMPHOCYTES % (MANUAL) 11 % (16-48); METAMYELOCYTES % 1 % (0-0); MONOCYTES % (MANUAL) 9 % (0-11.0); NEUTROPHILS % (MANUAL) 75 (42-76)
--- NOTE | 2019-11-16 12:11 | NUR ---
rn notes patients b/s level of 101, no insulin coverage needed
[2019-11-16] MEDS: CEFAZOLIN 1 GM in IV D5W 50 ML IV SCH ×2 (14:53→20:59)
[2019-11-16] MEDS: INSULIN REGULAR, HUMAN 100 UNIT/ML 3 ML VIAL SQ PRN ×2 (17:55→21:06)
[2019-11-16] MEDS: ATORVASTATIN 10 MG TABLET PO SCH (17:58)
--- NOTE | 2019-11-16 18:54 | NUR ---
rn notes patient remains on 2L nasal cannula, no sob noted, patient denies pain at this time. confused. HD done today with 1.3L out. R leg cellulitis resolved. SANTI fistula present. R FA 22 present. post HD vanco given. Awaiting for [facility] approval to be transferred. bed at the lowest setting, call light within reach, side rails up x2.
[2019-11-16 20:27] VITALS: BP 140/59
[2019-11-16] MEDS: GABAPENTIN 300 MG CAPSULE PO SCH (20:53)
[2019-11-16] MEDS: ACETAMINOPHEN 325 MG TABLET PO PRN (20:54)
--- NOTE | 2019-11-17 06:30 | NUR ---
RN PM CLOSING NOTE PT ON 2LNC NO SOB NOTED PT DENIES PAIN. PATIENT IS CALLING OUT AND MOANING. PT IS CONFUSED. PT HAS SANTI FISTULA PRESENT. R WIST 22. WITH PLAN TO BE TRNASFERRED OR DISCHARGE BACK TO FACILITY. approval to be transferred. bed at the lowest setting, call light within reach, side rails up x2.
[2019-11-17] MEDS: BLOOD SUGAR DIAGNOSTIC 1 EACH STRIP IN SCH ×4 (07:32→21:21)
[2019-11-17 08:00] VITALS: BP 137/62
[2019-11-17] MEDS: DOCUSATE SODIUM 100 MG CAPSULE PO SCH (08:34)
[2019-11-17] MEDS: CEFAZOLIN 1 GM in IV D5W 50 ML IV SCH ×2 (08:34→20:06)
[2019-11-17] MEDS: FOLIC ACID 1 MG TABLET PO SCH (08:34)
[2019-11-17] MEDS: CLONIDINE HCL 0.1 MG TABLET PO SCH ×2 (08:34→20:07)
[2019-11-17] MEDS: CARVEDILOL 3.125 MG TABLET PO SCH ×2 (08:34→20:07)
[2019-11-17] MEDS: HEPARIN SODIUM, PORCINE 5000 UNITS/1 ML VIAL SQ SCH ×2 (08:35→20:55)
[2019-11-17] MEDS: INSULIN REGULAR, HUMAN 100 UNIT/ML 3 ML VIAL SQ PRN ×3 (12:18→21:32)
[2019-11-17 16:00] VITALS: BP 133/63
[2019-11-17] MEDS: ATORVASTATIN 10 MG TABLET PO SCH (17:27)
--- NOTE | 2019-11-17 19:23 | NUR ---
PT ON 2LNC TOLERATING WELL; RESP EVEN AND UNLABORED. PATIENT IN NO APPARENT DISTRESS. PT A/O X1 SPANSIH SPEAKING ONLY. PT HAS LFA 22 GUAGE PATENT INTACT FLUSHED. AND SANTI AVFISTULA INTACT. SAFETY PRECAUTIONS IN PLACE, CALL LIGHT WITHIN REACH.WILL ENDORSE TO NEXT SHIFT FOR NIELS.
--- NOTE | 2019-11-17 19:40 | NUR ---
RN OPEN NOTES PATIENT IS WATCHING TV IN BED. BED IS IN LOWEST LOCKED POSITION WITH SIDE RAILS UP X2, SEMI FOWLERS. A/O X1. ON 2L NC, NO SOB/ ACUTE RESPIRATORY DISTRESS NOTED. NO COMPLAINTS OF PAIN AT THE MOMENT. CALL LIGHT IS WITHIN REACH. WILL CONTINUE TO MONITOR.
[2019-11-17 20:00] VITALS: BP 130/63
[2019-11-17] MEDS: GABAPENTIN 300 MG CAPSULE PO SCH (21:15)
--- NOTE | 2019-11-18 03:58 | NUR ---
RN NOTES BRINGING PATIENT TO ROOM 202. GAVE REPORT TO BRADFORD DELGADILLO FOR NIELS.
--- NOTE | 2019-11-18 04:00 | NUR ---
RN NOTES Received patient transferred from [facility] to MS 202. On O2 via NC @ 2LPM, saturating well, no respiratory distress noted. A/O x1-2, no s/sx of discomfort noted. Kept on bed clean, dry and comfortable. On fall and aspiration precautions. Will continue to monitor accordingly.
[2019-11-18] MEDS: BLOOD SUGAR DIAGNOSTIC 1 EACH STRIP IN SCH ×4 (06:41→21:51)
--- NOTE | 2019-11-18 06:50 | NUR ---
RN CLOSING NOTES Patient awake at this time making moaning sounds, when asked, patient denies any discomfort. On O2 inhalation via NC, titrated to keep SpO2>92%, no SOB/respiratory distress noted. Patient denies any discomfort at this time. Afebrile the whole shift, no new unusualities. All nursing needs attended. Kept on bed clean, dry and comfortable. Endorsed.
--- NOTE | 2019-11-18 08:00 | NUR ---
MS RN OPENING NOTES Received Patient resting in bed. A/O x 1-2. VS stable with no acute distress. Breathing even and unlabored on 2LPM via NC with no respiratory distress. Denies pain. No signs and symptoms of pain. SANTI Fistula clean with bruit and thrill noted. 22g PIV on left wrist clean, intact, patent and flushing well. Safety precautions in place. Bed locked and set to lowest position with side rails x 2 up. All needs rendered at this time. Call light within reach. Will continue to monitor.
[2019-11-18 08:44] VITALS: BP 122/56
[2019-11-18] MEDS: CEFAZOLIN 1 GM in IV D5W 50 ML IV SCH ×2 (09:03→20:01)
[2019-11-18] MEDS: CLONIDINE HCL 0.1 MG TABLET PO SCH ×2 (09:04→20:02)
[2019-11-18] MEDS: DOCUSATE SODIUM 100 MG CAPSULE PO SCH ×2 (09:04→16:38)
[2019-11-18] MEDS: CARVEDILOL 3.125 MG TABLET PO SCH ×2 (09:05→20:02)
[2019-11-18] MEDS: FOLIC ACID 1 MG TABLET PO SCH (09:05)
[2019-11-18] MEDS: HEPARIN SODIUM, PORCINE 5000 UNITS/1 ML VIAL SQ SCH (09:06)
[2019-11-18] MEDS: INSULIN REGULAR, HUMAN 100 UNIT/ML 3 ML VIAL SQ PRN ×2 (12:07→21:57)
[2019-11-18 16:05] VITALS: BP 124/54
[2019-11-18] MEDS: ATORVASTATIN 10 MG TABLET PO SCH (17:09)
--- NOTE | 2019-11-18 18:27 | NUR ---
MS RN CLOSING NOTES Patient awake and resting in bed. A/O x 1-2. VS stable with no acute distress. Breathing even and unlabored on 2LPM via NC with no respiratory distress. Denies pain. No signs and symptoms of pain. SANTI Fistula clean with bruit and thrill noted. 22g PIV on left wrist clean, intact, patent and flushing well. Safety precautions in place. Bed locked and set to lowest position with side rails x 2 up. All needs rendered at this time. Call light within reach. Will endorse plan of care to oncoming shift.
--- NOTE | 2019-11-18 19:34 | NUR ---
MS/RN OPENING NOTES RECEIVED PATIENT IN BED, AWAKE AND TALKING TO SELF, PATIENT WITH COGNITIVE BEHAVIOR AND MONITORING FOR BOWEL, SIDE RAILS UP, BED ALARM ON, MONITORED FOR SAFETY. RESPIRATIONS EVEN AND UNLABORED, ON OXYGEN VIA NC AT 2LITER. WILL MONITOR,
--- NOTE | 2019-11-18 19:47 | NUR ---
MS/RN NOTES PATIENT SPEAKING IN ESTONIAN AND REPORT HAVING HEADACHE BLOOD PRESSURE CHECK AT 157/67 PULSE 95 WITH SCHEDULED BLOOD PRESSURE TO BE GIVEN.
[2019-11-18 20:00] VITALS: BP 157/67
--- NOTE | 2019-11-18 20:05 | NUR ---
RIGHT AV FISTULA NOTED AND BRUIT AND THRILL OBSERVED.
[2019-11-18 20:07] VITALS: BP 157/67
--- NOTE | 2019-11-18 20:34 | NUR ---
MS/RN NOTES PATIENT RESTING COMFORTABLY AT THIS TIME.PROVIDED FLUIDS.
[2019-11-18] MEDS: GABAPENTIN 300 MG CAPSULE PO SCH (21:51)
--- NOTE | 2019-11-18 22:08 | NUR ---
BLOOD SUGAR CHECK AT 151 AND SLIDING SCALE COVERGAE OF2 UNIT INSULIN GIVEN, SNACK OFFERED AND PROVIDED. PATIENT TOLERATED WELL. WILL MONITOR.
[2019-11-19] MEDS: BLOOD SUGAR DIAGNOSTIC 1 EACH STRIP IN SCH ×4 (06:01→22:10)
--- NOTE | 2019-11-19 06:21 | NUR ---
202-1MS/RN NOTE PATIENT ALERT X2, COLOMBIAN SPEAKING ATTENDED TO ALL NEEDS, MONITORED FOR ANY CHANGES, KEPT COMFORTABLE, INFUSED ANTIBIOTIC WITHOUT ANY S/S OF ADVERSE EFFECT. WILL ENDORSE TO AM RN FOR NIELS.
[2019-11-19 07:39] LABS: BASOPHILS % (AUTO) 0.5 % (0.0-2.0); EOSINOPHILS % (AUTO) 1.6 % (0.0-6.0); HEMATOCRIT 26 % (33-45); HEMOGLOBIN 8.8 g/dL (11.5-14.8); LYMPHOCYTES # (AUTO) 0.7 /CMM (0.8-4.8); MEAN CORPUSCULAR HGB CONC 34 g/dl (31.0-36.0); MEAN CORPUSCULAR VOLUME 92 fL (82-100); MONOCYTES # (AUTO) 0.7 /CMM (0.1-1.30); MONOCYTES % (AUTO) 7.7 % (2.0-12.0); NEUTROPHILS # (AUTO) 7.8 /CMM (1.8-8.9); NEUTROPHILS % (AUTO) 83.2 % (43.0-81.0); PLATELET COUNT (AUTO) 309 /CMM (150-450); RED BLOOD CELL COUNT(AUTO) 2.81 MIL/uL (4.0-5.2); WHITE BLOOD COUNT (AUTO) 9.4 K/uL (4.3-11.0)
--- NOTE | 2019-11-19 07:53 | NUR ---
MS RN OPENING NOTES RECEIVED PT IN BED. ASLEEP BUT AROUSABLE. AOX1-2. NO CARDIAC OR RESPIRATORY DISTRESS NOTED. NO SOB NOTED. SATURATING WELL AT 2L OF O2 VIA NC. BREATHING EVEN AND UNLABORED. NO S/S OF PAIN OR DISCOMFORT. PT NOTED WITH R ARM AV SHUNT. BRUIT AND THRILL PRESENT. NO BLEEDING OR S/S OF INFECTION NOTED. IV ACCESS NOTED ON L WRIST. INTACT AND PATENT AND FLUSHING WELL. NO S/S OF INFECTION OR INFILTRATION NOTED. SAFETY PRECAUTIONS IN PLACE. BED LOCKED AND IN LOW POSITION. SIDE RAILS UP X2. BED ALARM ON. CALL LIGHT WITHIN REACH. WILL CONT TO MONITOR. .
[2019-11-19 07:54] LABS: CALCIUM, SERUM 7.9 mg/dL (8.5-10.1); CREATININE 4.1 mg/dL (0.6-1.3); MAGNESIUM 1.9 mg/dL (1.8-2.4); PHOSPHORUS 5.1 mg/dL (2.5-4.9); POTASSIUM 4.6 mmol/L (3.5-5.1)
[2019-11-19] MEDS: CEFAZOLIN 1 GM in IV D5W 50 ML IV SCH ×2 (08:21→20:58)
[2019-11-19] MEDS: DOCUSATE SODIUM 100 MG CAPSULE PO SCH ×2 (08:21→16:28)
[2019-11-19] MEDS: CLONIDINE HCL 0.1 MG TABLET PO SCH ×2 (08:22→22:00)
[2019-11-19] MEDS: FOLIC ACID 1 MG TABLET PO SCH (08:22)
[2019-11-19] MEDS: CARVEDILOL 3.125 MG TABLET PO SCH ×2 (08:22→22:01)
[2019-11-19 08:43] VITALS: BP_SYST 128; BP_SYST 129; BP_DIAS 64; BP_DIAS 79
--- NOTE | 2019-11-19 10:00 | NUR ---
SEEN BY DR. PATINO PT WAS SEEN BY DR. PATINO, WITH ORDERS FOR 2ND TESTING FOR COVID.
--- NOTE | 2019-11-19 12:00 | NUR ---
SKIN RE-ASSESSMENT SKIN RE-ASSESSMENT DONE. PT NOTED WITH A L ABD FOLD REDNESS/MASD, R ABD FOLD REDNESS/MASD AND A PERINEAL AREA REDNESS/MASD. WOUND CONSULT ORDERED.
[2019-11-19 16:51] VITALS: BP 153/68
--- NOTE | 2019-11-19 17:05 | NUR ---
COVID TESTING SPECIMEN COLLECTED FOR COVID SWAB TESTING. SPECIMEN DROPPED OFF AT THE LAB.
[2019-11-19] MEDS: ATORVASTATIN 10 MG TABLET PO SCH (17:06)
--- NOTE | 2019-11-19 18:10 | NUR ---
MS RN CLOSING NOTES PT IN BED. ASLEEP BUT AROUSABLE. AOX1-2. NO CARDIAC OR RESPIRATORY DISTRESS NOTED. NO SOB NOTED. SATURATING WELL AT 2L OF O2 VIA NC. BREATHING EVEN AND UNLABORED. NO S/S OF PAIN OR DISCOMFORT. COVID TESTING WAS DONE TODAY, PENDING RESULTS. PT NOTED WITH R ARM AV SHUNT. BRUIT AND THRILL PRESENT. NO BLEEDING OR S/S OF INFECTION NOTED. IV ACCESS NOTED ON L WRIST. INTACT AND PATENT AND FLUSHING WELL. NO S/S OF INFECTION OR INFILTRATION NOTED. KEPT PT CLEAN AND DRY. TURNED AND REPOSITIONED. ALL NEEDS MET AND UNATTENDED. SAFETY PRECAUTIONS IN PLACE. BED LOCKED AND IN LOW POSITION. SIDE RAILS UP X2. BED ALARM ON. CALL LIGHT WITHIN REACH. WILL ENDORSE TO NEXT SHIFT.
[2019-11-19 20:00] VITALS: BP 130/67
[2019-11-19] MEDS: GABAPENTIN 300 MG CAPSULE PO SCH (22:01)
[2019-11-19] MEDS: INSULIN REGULAR, HUMAN 100 UNIT/ML 3 ML VIAL SQ PRN (22:09)
--- NOTE | 2019-11-20 02:17 | NUR ---
MS2/RN PATIENT IS SLEEPING AT THIS TIME, APPEAR COMFORTABLE, NO DISTRESS NOTED, CALL LIGHT IN REACH. WILL CONTINUE TO MONITOR.
[2019-11-20] MEDS: BLOOD SUGAR DIAGNOSTIC 1 EACH STRIP IN SCH ×4 (06:34→22:01)
--- NOTE | 2019-11-20 06:45 | NUR ---
MS2/RN PATIENT IS AWAKE, COMFORTABLE, NO DISTRESS NOTED, CALL LIGHT IN REACH, ALL NEEDS ATTENDED AT THIS TIME, WILL CONTINUE TO MONITOR.
[2019-11-20 07:02] LABS: BASOPHILS # (AUTO) 0.1 /CMM (0.0-0.2); BASOPHILS % (AUTO) 0.5 % (0.0-2.0); HEMATOCRIT 27 % (33-45); HEMOGLOBIN 8.5 g/dL (11.5-14.8); LYMPHOCYTES # (AUTO) 0.6 /CMM (0.8-4.8); LYMPHOCYTES % (AUTO) 5.2 % (20.0-44.0); MEAN CORPUSCULAR HGB CONC 32 g/dl (31.0-36.0); MEAN CORPUSCULAR VOLUME 93 fL (82-100); MONOCYTES # (AUTO) 0.8 /CMM (0.1-1.30); MONOCYTES % (AUTO) 6.4 % (2.0-12.0); NEUTROPHILS # (AUTO) 10.3 /CMM (1.8-8.9); NEUTROPHILS % (AUTO) 86.9 % (43.0-81.0); PLATELET COUNT (AUTO) 320 /CMM (150-450); RED BLOOD CELL COUNT(AUTO) 2.88 MIL/uL (4.0-5.2); WHITE BLOOD COUNT (AUTO) 11.8 K/uL (4.3-11.0)
[2019-11-20 07:26] LABS: CREATININE 4.6 mg/dL (0.6-1.3); PHOSPHORUS 5.7 mg/dL (2.5-4.9); POTASSIUM 4.9 mmol/L (3.5-5.1)
[2019-11-20 08:00] VITALS: BP 129/68
--- NOTE | 2019-11-20 08:00 | NUR ---
MS RN OPENING NOTES RECEIVED PATIENT IN BED, AWAKE, ALERT AND ORIENTED X 2. ABLE TO MAKE NEEDS KNOWN. NO CARDIAC OR RESPIRATORY DISTRESS NOTED. NO SOB NOTED. SATURATING WELL ON ROOM AIR. NO SOB NOTED. BREATHING EVEN AND UNLABORED. STILL AWAITING FOR 2ND COVID TESTING RESULTS. IV ACCESS NOTED ON R WRIST AND R AC. INTACT AND PATENT AND FLUSHING WELL. NO S/S OF INFECTION OR INFILTRATION NOTED. IV FLUIDS RUNNING 1/2 NS AT 75ML/ HR. TOLERATING IV FLUIDS WELL. SAFETY PRECAUTIONS IN PLACE. BED LOCKED AND IN LOW POSITION. SIDE RAILS UPX2. BED ALARM ON. CALL LIGHT WITHIN REACH. WILL CONT TO MONITOR.
--- NOTE | 2019-11-20 08:15 | NUR ---
WOUND CARE CONSULT: PT PRESENTS WITH PITTING EDEMA TO LOWER EXTREMITIES (2+) WITH SOME REDNESS TO LEFT LOWER LEG AND RASHES TO ABDOMINAL/GROIN FOLDS, BUTTOCKS AND PERINEUM. RECOMMENDATIONS MADE FOR SKIN PROTECTION. DISCUSSED WITH NURSING STAFF. PT IS ON EDUARDO ISOFLEX LOW AIRLOSS BED. WILL SEE PRN. YANES IN AGREEMENT WITH PLAN OF CARE.
[2019-11-20] MEDS: CEFAZOLIN 1 GM in IV D5W 50 ML IV SCH ×2 (08:29→21:37)
[2019-11-20] MEDS: CLONIDINE HCL 0.1 MG TABLET PO SCH ×2 (08:31→22:00)
[2019-11-20] MEDS: DOCUSATE SODIUM 100 MG CAPSULE PO SCH ×2 (08:31→17:16)
[2019-11-20] MEDS: CARVEDILOL 3.125 MG TABLET PO SCH ×2 (08:31→22:00)
[2019-11-20] MEDS: FOLIC ACID 1 MG TABLET PO SCH (08:31)
[2019-11-20] MEDS: CLOTRIMAZOLE 1% 15 GM TUBE TP SCH ×2 (09:25→17:16)
[2019-11-20] MEDS: INSULIN REGULAR, HUMAN 100 UNIT/ML 3 ML VIAL SQ PRN ×2 (11:26→22:18)
[2019-11-20] MEDS: ATORVASTATIN 10 MG TABLET PO SCH (17:16)
--- NOTE | 2019-11-20 19:15 | NUR ---
MS RN CLOSING NOTES PATIENT IN BED, AWAKE, ALERT AND ORIENTED X 2. ABLE TO MAKE NEEDS KNOWN. NO CARDIAC OR RESPIRATORY DISTRESS NOTED. NO SOB NOTED. SATURATING WELL ON ROOM AIR. NO SOB NOTED. BREATHING EVEN AND UNLABORED. COVID RESULTS CAME BACK NEGATIVE. IV ACCESS WAS ACCIDENTALLY PULLED OUT BY PT. ATTEMPTED TO RE-INSERT 2X, UNSUCCESSFUL. ENDORSED TO NIGHT NURSE TO TRY TO RE-INSERT. SAFETY PRECAUTIONS IN PLACE. BED LOCKED AND IN LOW POSITION. SIDE RAILS UPX2. BED ALARM ON. CALL LIGHT WITHIN REACH. WILL ENDORSE TO NEXT SHIFT.
--- NOTE | 2019-11-20 19:35 | NUR ---
RN OPENING NOTES RECEIVED REPORT FROM GOMEZ RN. FOUND Pt AWAKE, RESTING IN BED, TALKING TO SELF IN [place]. NO S/S OF ACUTE DISTRESS OR SOB NOTED. PER REPORT Pt IS A/OX1, CONFUSED, UZBEK SPEAKING ONLY. S/P HD EARLIER TODAY WITH 2L OUTPUT; SANTI AV SHUNT. PER REPORT Pt IS ANURIC. 2ND COVID TEST RESULT CAME BACK NEGATIVE. DC PLANNING BACK TO [facility]. SAFETY MEASURES IN PLACE. BED LOW, LOCKED, HOB ELEVATED, SIDE RAILS UP, CALL LIGHT AND BEDSIDE TABLE WITHIN REACH. BED ALARM ON. WILL CONTINUE TO MONITOR Pt's CONDITION AND SAFETY THROUGHOUT THE NIGHT.
[2019-11-20 20:00] VITALS: BP_SYST 135; BP_SYST 148; BP_DIAS 55; BP_DIAS 70
--- NOTE | 2019-11-20 21:21 | NUR ---
RN NOTES NEW IV ACCESS L WRIST #22G
[2019-11-20 21:30] VITALS: BP 148/70
[2019-11-20] MEDS: GABAPENTIN 300 MG CAPSULE PO SCH (22:00)
--- NOTE | 2019-11-20 22:19 | NUR ---
rn notes bg 172. administered 3un of regular insulin per slididng scale.
[2019-11-21 06:31] LABS: BASOPHILS % (AUTO) 0.2 % (0.0-2.0); EOSINOPHILS % (AUTO) 0.5 % (0.0-6.0); HEMATOCRIT 25 % (33-45); HEMOGLOBIN 8.4 g/dL (11.5-14.8); LYMPHOCYTES # (AUTO) 0.4 /CMM (0.8-4.8); LYMPHOCYTES % (AUTO) 3.7 % (20.0-44.0); MEAN CORPUSCULAR HGB CONC 33 g/dl (31.0-36.0); MEAN CORPUSCULAR VOLUME 92 fL (82-100); MONOCYTES % (AUTO) 8.5 % (2.0-12.0); NEUTROPHILS # (AUTO) 10.7 /CMM (1.8-8.9); NEUTROPHILS % (AUTO) 87.1 % (43.0-81.0); PLATELET COUNT (AUTO) 330 /CMM (150-450); RED BLOOD CELL COUNT(AUTO) 2.74 MIL/uL (4.0-5.2); WHITE BLOOD COUNT (AUTO) 12.2 K/uL (4.3-11.0)
[2019-11-21] MEDS: BLOOD SUGAR DIAGNOSTIC 1 EACH STRIP IN SCH ×4 (06:45→21:32)
--- NOTE | 2019-11-21 06:55 | NUR ---
RN NOTES AC BG 102. NO INSULIN COVERAGE NEEDED AT THIS TIME.
--- NOTE | 2019-11-21 07:22 | NUR ---
RN CLOSING NOTES NO SIGNIFICANT CHANGES IN Pt's CONDITION. Pt REMAINED STABLE PER BASELINE. NO S/S OF ACUTE DISTRESS OR SOB NOTED DURING THE NIGHT. ALL NEEDS MET AND ATTENDED TO. SAFETY MEASURES IN PLACE. ENDORSED TO DAYSHIFT RN FOR Pt's NIELS.
--- NOTE | 2019-11-21 07:34 | NUR ---
MS RN OPENING NOTE RECEIVED PATIENT IN BED SLEEPING COMFORTABLY. PATIENT IN NO ACUTE DISTRESS. NO SOB NOTED. PATIENT BREATHING IS EVEN AND UNLABORED. SAFETY PRECAUTIONS IN PLACE. SANTI AV SHUNT NOTED. BED ALARM IS ON. PATIENT BED IS LOCKED AND IN LOWEST POSITION. CALL LIGHT WITHIN REACH. WILL CONTINUE TO MONITOR.
[2019-11-21 07:48] LABS: CALCIUM, SERUM 8.2 mg/dL (8.5-10.1); CREATININE 3.5 mg/dL (0.6-1.3); POTASSIUM 4.2 mmol/L (3.5-5.1)
[2019-11-21 08:00] VITALS: BP 141/59
[2019-11-21] MEDS: DOCUSATE SODIUM 100 MG CAPSULE PO SCH ×2 (08:25→17:06)
[2019-11-21] MEDS: CARVEDILOL 3.125 MG TABLET PO SCH ×2 (08:25→20:55)
[2019-11-21] MEDS: FOLIC ACID 1 MG TABLET PO SCH (08:25)
[2019-11-21] MEDS: CEFAZOLIN 1 GM in IV D5W 50 ML IV SCH ×2 (08:25→20:56)
[2019-11-21] MEDS: CLONIDINE HCL 0.1 MG TABLET PO SCH ×2 (08:26→20:55)
[2019-11-21] MEDS: CLOTRIMAZOLE 1% 15 GM TUBE TP SCH ×2 (08:27→17:06)
[2019-11-21] MEDS: INSULIN REGULAR, HUMAN 100 UNIT/ML 3 ML VIAL SQ PRN ×2 (12:06→17:10)
[2019-11-21] MEDS: ATORVASTATIN 10 MG TABLET PO SCH (17:06)
--- NOTE | 2019-11-21 18:11 | NUR ---
MS RN CLOSING NOTE PATIENT IN BED SLEEPING COMFORTABLY. PATIENT IN NO ACUTE DISTRESS. NO SOB NOTED. PATIENT BREATHING IS EVEN AND UNLABORED. SAFETY PRECAUTIONS IN PLACE. PATIENT KEPT CLEAN, DRY, AND COMFORTABLE THROUGHOUT SHIFT. NEEDS AND CONCERNS ADDRESSED. SANTI AV SHUNT NOTED. BED ALARM IS ON. PATIENT TURNED AND REPOSITION Q2H. PATIENT BED IS LOCKED AND IN LOWEST POSITION. CALL LIGHT WITHIN REACH. WILL ENDORSE CARE TO PM SHIFT FOR NIELS.
--- NOTE | 2019-11-21 19:00 | NUR ---
RECEIVED PATIENT IN HER BED. SHE SMILED WHEN SHE SAW THE NURSE WALK IN. SHE OS ORIENTATED TO SELF. TV ON IN [place] FOR HER.
[2019-11-21 20:42] VITALS: BP 142/62
[2019-11-21 20:51] VITALS: BP 142/62
[2019-11-21] MEDS: GABAPENTIN 300 MG CAPSULE PO SCH (21:29)
--- NOTE | 2019-11-22 05:37 | NUR ---
ENDING NOTES: ALERT WITH CONFUSION. COOPERATIVE. SWALLOWS W/O PROBLEMS. HD STARTING AT 05:30 THIS AM AV SHUNT RT ARM. THRU THE NIGHT SHE SLEPT OFF AND ON, WHEN AWAKE SHE MOANS CONTINIOUSLY. 02 AT 2L LITERS NO SOB SATS IN THE MID 90%.
[2019-11-22] MEDS: BLOOD SUGAR DIAGNOSTIC 1 EACH STRIP IN SCH ×2 (06:22→12:16)
--- NOTE | 2019-11-22 07:20 | NUR ---
MS RN NOTES RECEIVED PATIENT IN BED, ALERT AND ORIENTED X1. HOB ELEVATED. NO SOB. ON O2 AT 2L/MIN VIA NC. PATIENT CURRENTLY RECEIVING HD AT THIS TIME. SANTI AV FISTULA INTACT. LEFT WRIST # 22 SL INTACT AND PATENT. BED IN LOWEST POSITION, LOCKED. BED ALARM ON. CALL LIGHT WITHIN REACH. BED SIDERAILS UP X2. FREQUENT VISUAL CHECK DONE.
[2019-11-22 07:48] VITALS: BP 151/67
--- NOTE | 2019-11-22 07:58 | NUR ---
MS RN NOTE PATIENT FINISHED HD NO S/S OF COMPLICATIONS OBSERVED. 1 L OUTPUT PER HD NURSE.
[2019-11-22] MEDS: CEFAZOLIN 1 GM in IV D5W 50 ML IV SCH (08:25)
[2019-11-22 08:32] VITALS: BP 150/75
[2019-11-22] MEDS: FOLIC ACID 1 MG TABLET PO SCH (08:32)
[2019-11-22] MEDS: CLONIDINE HCL 0.1 MG TABLET PO SCH (08:32)
[2019-11-22] MEDS: CARVEDILOL 3.125 MG TABLET PO SCH (08:32)
[2019-11-22] MEDS: DOCUSATE SODIUM 100 MG CAPSULE PO SCH (08:32)
[2019-11-22] MEDS: CLOTRIMAZOLE 1% 15 GM TUBE TP SCH (08:33)
[2019-11-22] MEDS: INSULIN REGULAR, HUMAN 100 UNIT/ML 3 ML VIAL SQ PRN (12:17)
--- NOTE | 2019-11-22 16:30 | NUR ---
MS RN NOTES ALERT AND ORIENTED X1. HOB ELEVATED. NO S/S OF RESPIRATORY DISTRESS. REMAIN ON O2 AT 2L/MIN VIA NC. FOR DISCHARGE BACK TO [facility]. REPORT GIVEN TO TERI. ALL BELONGINGS ACCOUNTED FOR. NO S/S OF HYPO/HYPERGLYCEMIA. IV ACCESS REMOVED WITH CATHETER TIP INTACT. PATIENT PICKED UP BY AMBULANCE ACCOMPANIED BY 2 EMT. PATIENT LEFT IN STABLE CONDITION.
--- NOTE | 2019-11-22 16:30 | NUR ---
MS RN NOTES DISCHARGE PACKET GIVEN TO EMT
== END 2019-11-22 16:39 | DRG 720 ==
LOC: ER 23:50 → TELE1 11-10 01:36 → TELE 11-12 15:02 → MED 11-16 06:21 → MEDSG2 11-18 04:00
PROC: 5A1D70Z Performance of Urinary Filtration, Intermittent, Less than 6 Hours Per Day (ICD-10-PCS; principal; 2019-11-11)
DX: A41.51 Sepsis due to Escherichia coli [E. coli] (principal); I13.2 Hypertensive heart and chronic kidney disease with heart failure and with stage 5 chronic kidney disease, or end stage renal disease; E11.22 Type 2 diabetes mellitus with diabetic chronic kidney disease; I27.20 Pulmonary hypertension, unspecified; N18.6 End stage renal disease; E87.1 Hypo-osmolality and hyponatremia; F20.9 Schizophrenia, unspecified; Z79.4 Long term (current) use of insulin; K21.9 Gastro-esophageal reflux disease without esophagitis; J98.11 Atelectasis; D63.8 Anemia in other chronic diseases classified elsewhere; Z99.2 Dependence on renal dialysis; F32.9 Major depressive disorder, single episode, unspecified; E78.5 Hyperlipidemia, unspecified; D63.1 Anemia in chronic kidney disease; F03.90 Unspecified dementia, unspecified severity, without behavioral disturbance, psychotic disturbance, mood disturbance, and anxiety; L03.116 Cellulitis of left lower limb; N39.0 Urinary tract infection, site not specified; Z79.82 Long term (current) use of aspirin; Z86.718 Personal history of other venous thrombosis and embolism; Z88.0 Allergy status to penicillin; I31.3 Pericardial effusion (noninflammatory); I50.20 Unspecified systolic (congestive) heart failure
CPT/HCPCS: 36415; 71045-TC; 80048-TC; 80053-TC; 80076-TC; 80202-TC; 81000-TC; 82728-TC; 82962-TC; 83605-TC; 83615-TC; 83735-TC; 84100-TC; 84484-TC; 85025-TC; 85730-TC; 86140-TC; 87040-TC; 87081-TC; 87086-TC; 87186-TC; 90935-TC; 93307-TC; 93970-TC; 97110-TC; 97112-TC; 97530-TC; A6403; G0378; J0690; J0692; J0696; J1644; J1815; J1956; J3370; J3490; J7030; J7040; J7050; J7060; U0003-CS